=== PATIENT | male | born 1965 | race Caucasian/White ===

== ENCOUNTER 2017-05-27 08:59 | Emergency (ER) | payer OTHER ==
[~2017-05-27] VITALS: Ht 177.8 cm; Wt 62.0 kg
[2017-05-27 09:03] VITALS: BP 161/71; PULSE 49; RESP 20; TEMP 98.7; O2SAT 98
[2017-05-27] MEDS ORDERED: SODIUM CHLOR 0.9% 1000 ML INJ 1,000 ML IV SCH (09:12)
[2017-05-27] MEDS ORDERED: SODIUM CHLORIDE 0.9% FLUSH 10 ML FLUSH IV FLUSH PRN (09:15)
[2017-05-27] MEDS ORDERED: PROMETHAZINE INJ 25 MG/ML VIAL IM ONE (09:15)
[2017-05-27] MEDS ORDERED: HYDROmorphone HCL PF 1 MG/ML VIAL IVS ONE (09:15)
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
[2017-05-27] MEDS ORDERED: MORP1TAB26 PO (09:41)
[2017-05-27] MEDS ORDERED: GABA600T PO (09:41)
[2017-05-27] MEDS ORDERED: AMBI10TA PO (09:41)
[2017-05-27] MEDS ORDERED: SYNT112T PO (09:41)
[2017-05-27] MEDS ORDERED: MIRT30TA PO (09:41)
[2017-05-27] MEDS ORDERED: NEFA150T PO (09:48)
[2017-05-27] MEDS ORDERED: ALPR2TAB3 PO (09:48)
[2017-05-27 09:54] LABS: AUTOMATED NEUTROPHIL # 8.8 TH/MM3 (1.8-7.7); BASOPHIL % 0.4 % (0.0-2.0); EOSINOPHIL % 0.1 % (0.0-4.0); HEMATOCRIT 39.2 % (39.0-51.0); HEMO FLAGS DIFF FINAL; LYMPH % 17.2 % (9.0-44.0); LYMPHOCYTE # 1.9 TH/MM3 (1.0-4.8); MEAN CELL VOLUME 90.4 FL (80.0-100.0); MEAN CORPUSCULAR HEMOGLOBIN 30.4 PG (27.0-34.0); MEAN CORPUSCULAR HGB CONC 33.6 % (32.0-36.0); MONO % 3.7 % (0.0-8.0); NEUT % 78.6 % (16.0-70.0); PLATELET COUNT 388 TH/MM3 (150-450); RED BLOOD COUNT 4.33 MIL/MM3 (4.50-5.90); RED CELL DISTRIBUTION WIDTH 15.4 % (11.6-17.2); WHITE BLOOD COUNT 11.2 TH/MM3 (4.0-11.0)
[2017-05-27 10:49] LABS: ANION GAP 8 MEQ/L (5-15); AST (GOT) 16 U/L (15-37); BICARBONATE 28.7 MEQ/L (21.0-32.0); BLOOD UREA NITROGEN 8 MG/DL (7-18); CHLORIDE 103 MEQ/L (98-107); GLOMERULAR FILTRATION RATE 85 ML/MIN (>89); POTASSIUM 3.8 MEQ/L (3.5-5.1); SODIUM (NA) 140 MEQ/L (136-145)
[2017-05-27 10:50] LABS: ALT (GPT) 15 U/L (12-78)
[2017-05-27 10:52] LABS: ALKALINE PHOSPHATASE 86 U/L (45-117); TOTAL BILIRUBIN ADULT 0.6 MG/DL (0.2-1.0)
[2017-05-27] MEDS ORDERED: REGL5TAB PO (10:55)
== END 2017-05-27 11:25 | disposition home or self-care (01) ==
LOC: NEPC 08:59
DX: R11.2 Nausea with vomiting, unspecified (principal); G89.29 Other chronic pain; Z72.0 Tobacco use; Z91.14 Patient's other noncompliance with medication regimen
CPT/HCPCS: 80053; 83690; 85025; 96361; 96372; 96374; 99284; J1170; J2550; J7030